=== PATIENT | female | born 1995 | race Caucasian/White ===

== ENCOUNTER 2018-01-28 18:50 | Emergency (ER) | payer OTHER ==
--- NOTE | 2018-01-28 19:02 | ER Report ---
History and Physical Time Seen By MD: 19:02 HPI/ROS CHIEF COMPLAINT: Unintentional overdose HISTORY OF PRESENT ILLNESS: This is a 22-year-old female who presents to the emergency department for an unintentional overdose. Patient states that about one hour prior to arrival she was having some back pain and decided to take 4 of her Tylenol 3's that she was prescribed for chronic back pain secondary to scoliosis. Patient states that she did take the Tylenol with some wine. Patient also states that about 4:00 today she did have a large glass of wine. Patient denies suicidal ideations. Patient states she has chronic back pain and she was just trying to relieve the pain. Patient denies aches, chills, nausea, vomiting , diarrhea. Patient does have 3 roommates who encouraged her to come in for further evaluation. REVIEW OF SYSTEMS: Constitutional: No fever, no chills. Eyes: No discharge. ENT: No sore throat. Cardiovascular: No chest pain, no palpitations. Respiratory: No cough, no shortness of breath. Gastrointestinal: No abdominal pain, no vomiting. Genitourinary: No hematuria. Musculoskeletal: As above. Skin: No rashes. Neurological: No headache. Psych: As above. Allergies: Coded Allergies: No Known Drug Allergies (Unverified , 01/28/18) Home Meds Active Scripts Lidocaine (Lidocaine) 5 % Adh..patch, 1 PATCH.72H TOP Q72H Y for prn, #1 BOX 0 Refills Prov:DARRION PARRA [employer]IVER-BC 01/28/18 Reported Medications l-Norgest/E.estradiol-E.estrad (Fayosim Tablet) 0.15MG(84) Tbdspk.3mo, 1 TAB PO QDAY 01/28/18 Fluoxetine Hcl (PROZAC) 20 Mg Capsule, 20 MG PO QDAY, CAPSULE 01/28/18 Buspirone Hcl (BUSPIRONE HCL) 30 Mg Tablet, 50 MG PO QDAY, #10 TAB 01/28/18 Past Medical/Surgical History She has a past medical and surgical history of anxiety, scoliosis and chronic back pain. Reviewed Nurses Notes: Yes Constitutional Vital Sign - Last 24 Hours 01/28/18 01/28/18 19:03 20:56 Temp 99.9 Pulse 108 85 Resp 24 16 B/P (MAP) 157/93 135/86 (102) Pulse Ox 94 92 O2 Delivery Room Air Room Air Physical Exam General Appearance: The patient is alert, has no immediate need for airway protection and no signs of toxicity, tearful but making good eye contact. Eyes: Pupils equal and round no pallor or injection. ENT, Mouth: Mucous membranes are moist. Respiratory: There are no retractions, lungs are clear to auscultation. Cardiovascular: Regular rate and rhythm. Gastrointestinal: Abdomen is soft and non tender, no masses, bowel sounds normal. Neurological: Alert and oriented 4. Moving ox trophies. No focal neuro deficits. Following all commands. Skin: Warm and dry, no rashes. Musculoskeletal: Neck is supple non tender. Extremities are nontender, nonswollen and have full range of motion. DIFFERENTIAL DIAGNOSIS: After history and physical exam differential diagnosis was considered for unintentional overdose, liver damage and kidney injury. Medical Decision Making Data Points Result Diagram: 01/28/18192401/28/181924 Laboratory Hematology Test 01/28/18 18:54 01/28/18 19:25 Urine Opiates Screen Positive Urine Barbiturates Screen Negative Ur Tricyclic Antidepressants Screen Negative Urine Phencyclidine Screen Negative Urine Amphetamines Screen Negative Urine Benzodiazepines Screen Negative Urine Cocaine Screen Negative Urine Cannabinoids Screen Negative Red Blood Count 5.04 M/uL (4.17-5.56) Mean Corpuscular Volume 88.1 fL (80.0-96.0) Mean Corpuscular Hemoglobin 31.2 pg (26.0-33.0) Mean Corpuscular Hemoglobin Concent 35.4 g/dL (32.0-36.0) Red Cell Distribution Width 13.1 % (11.5-14.5) Mean Platelet Volume 7.7 fL (7.2-11.1) Neutrophils (%) (Auto) 46.1 % (39.4-72.5) Lymphocytes (%) (Auto) 42.4 % (17.6-49.6) Monocytes (%) (Auto) 9.2 % (4.1-12.4) Eosinophils (%) (Auto) 1.9 % (0.4-6.7) Basophils (%) (Auto) 0.4 % (0.3-1.4) Nucleated RBC Relative Count (auto) 0.0 /100WBC Neutrophils # (Auto) 2.9 K/uL (2.0-7.4) Lymphocytes # (Auto) 2.7 K/uL (1.3-3.6) Monocytes # (Auto) 0.6 K/uL (0.3-1.0) Eosinophils # (Auto) 0.1 K/uL (0.0-0.5) Basophils # (Auto) 0.0 K/uL (0.0-0.1) Nucleated RBC Absolute Count (auto) 0.00 K/uL Sodium Level 140 mmol/L (137-145) Potassium Level 3.1 mmol/L (3.5-5.0) Chloride Level 104 mmol/L (98-107) Carbon Dioxide Level 19 mmol/L (22-31) Blood Urea Nitrogen 10 mg/dl (7-18) Creatinine 0.70 mg/dl (0.52-1.04) Glomerular Filtration Rate Calc > 60.0 Random Glucose 98 mg/dl (75-110) Calcium Level 9.4 mg/dl (8.4-10.2) Total Bilirubin 0.3 mg/dl (0.2-1.3) Aspartate Amino Transf (AST/SGOT) 37 U/L (0-35) Alanine Aminotransferase (ALT/SGPT) 64 U/L (0-56) Alkaline Phosphatase 137 U/L (0-126) Total Protein 7.9 gm/dl (6.3-8.2) Albumin 4.1 g/dl (3.5-5.0) Acetaminophen Level < 10 ug/ml Chemistry Test 01/28/18 18:54 01/28/18 19:25 Urine Opiates Screen Positive Urine Barbiturates Screen Negative Ur Tricyclic Antidepressants Screen Negative Urine Phencyclidine Screen Negative Urine Amphetamines Screen Negative Urine Benzodiazepines Screen Negative Urine Cocaine Screen Negative Urine Cannabinoids Screen Negative White Blood Count 6.3 k/uL (4.5-11.0) Red Blood Count 5.04 M/uL (4.17-5.56) Hemoglobin 15.7 g/dL (12.0-16.0) Hematocrit 44.4 % (34.0-47.0) Mean Corpuscular Volume 88.1 fL (80.0-96.0) Mean Corpuscular Hemoglobin 31.2 pg (26.0-33.0) Mean Corpuscular Hemoglobin Concent 35.4 g/dL (32.0-36.0) Red Cell Distribution Width 13.1 % (11.5-14.5) Platelet Count 245 K/uL (150-450) Mean Platelet Volume 7.7 fL (7.2-11.1) Neutrophils (%) (Auto) 46.1 % (39.4-72.5) Lymphocytes (%) (Auto) 42.4 % (17.6-49.6) Monocytes (%) (Auto) 9.2 % (4.1-12.4) Eosinophils (%) (Auto) 1.9 % (0.4-6.7) Basophils (%) (Auto) 0.4 % (0.3-1.4) Nucleated RBC Relative Count (auto) 0.0 /100WBC Neutrophils # (Auto) 2.9 K/uL (2.0-7.4) Lymphocytes # (Auto) 2.7 K/uL (1.3-3.6) Monocytes # (Auto) 0.6 K/uL (0.3-1.0) Eosinophils # (Auto) 0.1 K/uL (0.0-0.5) Basophils # (Auto) 0.0 K/uL (0.0-0.1) Nucleated RBC Absolute Count (auto) 0.00 K/uL Glomerular Filtration Rate Calc > 60.0 Calcium Level 9.4 mg/dl (8.4-10.2) Total Bilirubin 0.3 mg/dl (0.2-1.3) Aspartate Amino Transf (AST/SGOT) 37 U/L (0-35) Alanine Aminotransferase (ALT/SGPT) 64 U/L (0-56) Alkaline Phosphatase 137 U/L (0-126) Total Protein 7.9 gm/dl (6.3-8.2) Albumin 4.1 g/dl (3.5-5.0) Acetaminophen Level < 10 ug/ml Toxicology Test 01/28/18 18:54 01/28/18 19:25 Urine Opiates Screen Positive Urine Barbiturates Screen Negative Ur Tricyclic Antidepressants Screen Negative Urine Phencyclidine Screen Negative Urine Amphetamines Screen Negative Urine Benzodiazepines Screen Negative Urine Cocaine Screen Negative Urine Cannabinoids Screen Negative Acetaminophen Level < 10 ug/ml EKG/Imaging EKG Interpretation 12 lead EKG: Tylenol EKG 1923. Rhythm: Sinus tachycardia, ventricular rate 101. [place]: normal QRS: normal ST segments: No ST segment elevation or depression identified. ED Course/Re-evaluation Clinical Indication for ER IV: Hydration, IV Access ED Course The patient was admitted to a room. A history physical were obtained. Differential diagnoses were considered. An IV was started. A CBC, CMP, acetaminophen level and urine drug screen were obtained. CBC and CMP unremarkable. Negative acetaminophen levels. Negative urine drug screen. I did review these results with the patient. I did instruct her not to take more than the prescribed amount of pain medications and not to mix any medications with alcohol. I did offer the patient a lidocaine patch for her back discomfort. I also sent her home with a prescription for lidocaine patches. I also sent her home with a prescription for physical therapy. Patient states she has tried physical therapy for her back discomfort before however she is willing to explore physical therapy again. Patient had no questions or concerns at this time and was discharged home. Patient was in agreement with his clinic care. Decision to Disposition Date: Jan 28, 2018 Decision to Disposition Time: 20:46 Depart Departure Latest Vital Signs Vital Signs Date Time Temp Pulse Resp B/P (MAP) Pulse Ox O2 Delivery O2 Flow Rate FiO2 01/28/18 20:56 85 16 135/86 (102) 92 Room Air 01/28/18 19:03 99.9 Impression: Primary Impression: Unintentional Tylenol overdose Condition: Improved Disposition: HOME OR SELF-CARE Referrals: [facility] New Scripts Lidocaine (Lidocaine) 5 % Adh..patch 1 PATCH.72H TOP Q72H Y for prn, #1 BOX 0 Refills Prov: DARRION PARRA 01/28/18 Patient Instructions: Acetaminophen Overdose (ED), Back Pain (ED) Additional Instructions: Drink plenty of fluids. Get plenty of rest. Take medications as prescribed, do not mix alcohol with the medications. Try physical therapy as needed. Try lidocaine patch as needed. Return to the ED for any other concerns or worsening symptoms. Problem Qualifiers Primary Impression: Unintentional Tylenol overdose Encounter type: initial encounter Qualified Codes: T39.1X1A - Poisoning by 4 -aminophenol derivatives, accidental (unintentional), initial encounter DARRION PARRA-BC Jan 28, 2018 19:02
[2018-01-28] MEDS ORDERED: BUSP30TA18 PO (19:03)
[2018-01-28] MEDS ORDERED: FLUO-202 PO (19:03)
[2018-01-28] MEDS ORDERED: [UNRECOGNIZED DRUG - REMARK] PO (19:03)
[2018-01-28] MEDS ORDERED: NS(*) 0.9% 1000 ML BAG 1,000 ML IV ONE (19:10)
--- NOTE | 2018-01-28 19:35 | EKG ---
FAC[facility] PATIENT NAME: ALISSA SEGOVIA : [id number] MR: [id number] V: [id number] EXAM DATE: ORDERING PHYSICIAN: DARRION PARRA TECHNOLOGIST: Barrett Cody Reason : Blood Pressure : / mmHG Vent. Rate : 101 BPM Atrial Rate : 101 BPM P-R Int : 128 ms QRS Dur : 082 ms QT Int : 352 ms P-R-T Axes : 037 049 047 degrees QTc Int : 456 ms Sinus tachycardia Otherwise normal ECG No previous ECGs available Confirmed by VICKY ARELLANO ([id number]) on 01/29/2018 2:08:42 PM Referred By: Confirmed By:VICKY ARELLANO
[2018-01-28 19:38] LABS: PLATELET COUNT, AUTOMATED 245 K/uL (150-450)
[2018-01-28] MEDS ORDERED: LIDO700A19 TOP (20:50)
[2018-01-28] MEDS ORDERED: LIDOCAINE 5% PATCH TP SCH (20:50)
[2018-01-28 20:56] VITALS: BP 135/86
[2018-01-28] MEDS ORDERED: PATCH REMOVAL 1 EA TOP SCH (21:00)
== END 2018-01-28 21:08 | disposition home or self-care (01) ==
LOC: ER 19:02
DX: T39.1X1A Poisoning by 4-Aminophenol derivatives, accidental (unintentional), initial encounter (principal); R00.0 Tachycardia, unspecified
CPT/HCPCS: 80305; 80329; 85025; 93005; 99284; J7030; 82040; 82247; 82310; 82374; 82435; 82565; 82947; 84075; 84132; 84155; 84295; 84450; 84460; 84520

== ENCOUNTER 2019-02-12 12:57 | Emergency (ER) | payer OTHER ==
[~2019-02-12 12:57] MED LIST: BUSP30TA18 PO; FLUO-202 PO; LIDO700A19 TOP; [UNRECOGNIZED DRUG - REMARK] PO
--- NOTE | 2019-02-12 13:03 | ER Report ---
History and Physical Time Seen By MD: 13:03 HPI/ROS CHIEF COMPLAINT: Suicidal ideation and depression HISTORY OF PRESENT ILLNESS: This is a 23-year-old female presents to the emergency department for suicidal ideation and depression. Patient states that she has a long history of depression, anxiety and has had suicide attempt in the past. She states that over the last couple weeks she's had increased stressors, schools been intense, she also states that she is struggling with alcohol addiction. She drinks roughly a bottle of wine in the evenings. She states that Tuesday she drank a substantial amount of alcohol and then ate some adipose over the weekend, had some suicidal thoughts over the weekend and is currently having suicidal thoughts though she is not stating she has a specific plan. She did confide in her parents who live in [facility], her dad recommended that she come to the ER for evaluation and possible admission. Patient is here on a voluntary basis, she is very tearful. She also states that she has a history of cutting and burning herself, she burned her right upper thigh about one month ago nothing over the last several days. No other fevers or chills. No nausea or vomiting. No chest pain or shortness of breath. REVIEW OF SYSTEMS: Constitutional: No fever, no chills. Eyes: No discharge. ENT: No sore throat. Cardiovascular: No chest pain, no palpitations. Respiratory: No cough, no shortness of breath. Gastrointestinal: No abdominal pain, no vomiting. Genitourinary: No hematuria. Musculoskeletal: No back pain. Skin: As above. Neurological: No headache. Psychological: As above. Allergies: Coded Allergies: latex (Verified Allergy, Intermediate, rash, 01/29/18) Home Meds Reported Medications Trazodone Hcl (TRAZODONE HCL) 50 Mg Tablet, 50 MG PO QHS 02/12/19 l-Norgest/E.estradiol-E.estrad (Fayosim Tablet) 0.15MG(84) Tbdspk.3mo, 1 TAB PO QDAY 01/28/18 Fluoxetine Hcl (PROZAC) 20 Mg Capsule, 20 MG PO QDAY, CAPSULE 01/28/18 Buspirone Hcl (BUSPIRONE HCL) 30 Mg Tablet, 50 MG PO QDAY, #10 TAB 01/28/18 Discontinued Scripts Lidocaine (Lidocaine) 5 % Adh..patch, 1 PATCH.72H TOP Q72H PRN for prn, #1 BOX 0 Refills Prov:DARRION PARRA INTEGRATED SPECIALIST-BC 01/28/18 Past Medical/Surgical History The patient has a past medical surgical history of premenstrual dysphoric disorder, severe scoliosis, wears glasses, substance abuse, depression, anxiety, OCD, PTSD, suicide attempts. Reviewed Nurses Notes: Yes Hx Alcohol Use: Yes (occassional) Constitutional Vital Sign - Last 24 Hours 02/12/19 02/12/19 13:10 15:17 Temp 98.9 Pulse 86 99 Resp 16 16 B/P (MAP) 123/89 111/89 (96) Pulse Ox 94 94 O2 Delivery Room Air Room Air Physical Exam General Appearance: The patient is alert, has no immediate need for airway protection and no signs of toxicity, tearful. Eyes: Pupils equal and round no pallor or injection. ENT, Mouth: Mucous membranes are moist. Respiratory: There are no retractions, lungs are clear to auscultation. Cardiovascular: Regular rate and rhythm. Gastrointestinal: Abdomen is soft and non tender, no masses, bowel sounds normal. Neurological: Alert and oriented 4. Moving all cavities. Following all commands. No focal neurodeficits. Skin: Old laceration scars and recent burn jackson to the right upper thigh. Musculoskeletal: Neck is supple non tender. Extremities are nontender, nonswollen and have full range of motion. Psychological: Tearful, rapid to slow speech, making intermittent but good eye contact. Pulling at the clinic she is holding her hands. DIFFERENTIAL DIAGNOSIS: After history and physical exam differential diagnosis was considered for depression, bipolar, anxiety, suicidal ideation. Medical Decision Making Data Points Result Diagram: 02/12/19 1341 02/12/19 1341 Laboratory Hematology Test 02/12/19 13:05 02/12/19 13:41 Urine Color Yellow Urine Clarity Slightly-cloudy Urine pH 6.0 pH (4.8-9.5) Urine Specific [place] 1.019 Urine Protein Negative mg/dL (NEGATIVE) Urine Glucose (UA) Negative mg/dL (NEGATIVE) Urine Ketones Trace mg/dL (NEGATIVE) Urine Blood Negative (NEGATIVE) Urine Nitrite Negative (NEGATIVE) Urine Bilirubin Negative (NEGATIVE) Urine Urobilinogen 2.0 mg/dL (0.2-1.9) Urine Leukocyte Esterase Moderate (NEGATIVE) Urine RBC 3 /HPF (0-2/HPF) Urine WBC 14 /HPF (0-5/HPF) Urine Squamous Epithelial Cells Many /LPF (</=FEW) Urine Bacteria Many /HPF (NONE-FEW) Urine Mucus Few /HPF (NONE-FEW) Urine HCG, Qualitative Negative (NEGATIVE) Urine Opiates Screen Negative Urine Barbiturates Screen Negative Ur Tricyclic Antidepressants Screen Negative Urine Phencyclidine Screen Negative Urine Amphetamines Screen Negative Urine Benzodiazepines Screen Negative Urine Cocaine Screen Negative Urine Cannabinoids Screen Positive Red Blood Count 4.97 M/uL (4.17-5.56) Mean Corpuscular Volume 91.1 fL (80.0-96.0) Mean Corpuscular Hemoglobin 30.4 pg (26.0-33.0) Mean Corpuscular Hemoglobin Concent 33.4 g/dL (32.0-36.0) Red Cell Distribution Width 12.8 % (11.5-14.5) Mean Platelet Volume 8.0 fL (7.2-11.1) Neutrophils (%) (Auto) 63.4 % (39.4-72.5) Lymphocytes (%) (Auto) 27.7 % (17.6-49.6) Monocytes (%) (Auto) 6.5 % (4.1-12.4) Eosinophils (%) (Auto) 1.6 % (0.4-6.7) Basophils (%) (Auto) 0.8 % (0.3-1.4) Nucleated RBC Relative Count (auto) 0.0 /100WBC Neutrophils # (Auto) 4.0 K/uL (2.0-7.4) Lymphocytes # (Auto) 1.7 K/uL (1.3-3.6) Monocytes # (Auto) 0.4 K/uL (0.3-1.0) Eosinophils # (Auto) 0.1 K/uL (0.0-0.5) Basophils # (Auto) 0.1 K/uL (0.0-0.1) Nucleated RBC Absolute Count (auto) 0.00 K/uL Peripheral Blood Smear No Y/N Sodium Level 137 mmol/L (137-145) Potassium Level 3.7 mmol/L (3.5-5.0) Chloride Level 104 mmol/L (98-107) Carbon Dioxide Level 25 mmol/L (22-31) Blood Urea Nitrogen 7 mg/dl (7-18) Creatinine 0.80 mg/dl (0.52-1.04) Glomerular Filtration Rate Calc > 60.0 Random Glucose 83 mg/dl (75-110) Calcium Level 9.4 mg/dl (8.4-10.2) Magnesium Level 2.0 mg/dl (1.7-2.2) Total Bilirubin 0.2 mg/dl (0.2-1.3) Aspartate Amino Transf (AST/SGOT) 33 U/L (0-35) Alanine Aminotransferase (ALT/SGPT) 38 U/L (0-56) Alkaline Phosphatase 145 U/L (0-126) Total Protein 8.0 g/dl (6.3-8.2) Albumin 4.8 g/dl (3.5-5.0) Thyroid Stimulating Hormone (TSH) 2.21 uIU/ml (0.46-4.68) Salicylates Level < 10 mg/L Salicylate Last Dose Date unk Acetaminophen Level < 10 ug/ml Serum Alcohol < 10 mg/dl Chemistry Test 02/12/19 13:05 02/12/19 13:41 Urine Color Yellow Urine Clarity Slightly-cloudy Urine pH 6.0 pH (4.8-9.5) Urine Specific [place] 1.019 Urine Protein Negative mg/dL (NEGATIVE) Urine Glucose (UA) Negative mg/dL (NEGATIVE) Urine Ketones Trace mg/dL (NEGATIVE) Urine Blood Negative (NEGATIVE) Urine Nitrite Negative (NEGATIVE) Urine Bilirubin Negative (NEGATIVE) Urine Urobilinogen 2.0 mg/dL (0.2-1.9) Urine Leukocyte Esterase Moderate (NEGATIVE) Urine RBC 3 /HPF (0-2/HPF) Urine WBC 14 /HPF (0-5/HPF) Urine Squamous Epithelial Cells Many /LPF (</=FEW) Urine Bacteria Many /HPF (NONE-FEW) Urine Mucus Few /HPF (NONE-FEW) Urine HCG, Qualitative Negative (NEGATIVE) Urine Opiates Screen Negative Urine Barbiturates Screen Negative Ur Tricyclic Antidepressants Screen Negative Urine Phencyclidine Screen Negative Urine Amphetamines Screen Negative Urine Benzodiazepines Screen Negative Urine Cocaine Screen Negative Urine Cannabinoids Screen Positive White Blood Count 6.3 k/uL (4.5-11.0) Red Blood Count 4.97 M/uL (4.17-5.56) Hemoglobin 15.1 g/dL (12.0-16.0) Hematocrit 45.3 % (34.0-47.0) Mean Corpuscular Volume 91.1 fL (80.0-96.0) Mean Corpuscular Hemoglobin 30.4 pg (26.0-33.0) Mean Corpuscular Hemoglobin Concent 33.4 g/dL (32.0-36.0) Red Cell Distribution Width 12.8 % (11.5-14.5) Platelet Count 281 K/uL (150-450) Mean Platelet Volume 8.0 fL (7.2-11.1) Neutrophils (%) (Auto) 63.4 % (39.4-72.5) Lymphocytes (%) (Auto) 27.7 % (17.6-49.6) Monocytes (%) (Auto) 6.5 % (4.1-12.4) Eosinophils (%) (Auto) 1.6 % (0.4-6.7) Basophils (%) (Auto) 0.8 % (0.3-1.4) Nucleated RBC Relative Count (auto) 0.0 /100WBC Neutrophils # (Auto) 4.0 K/uL (2.0-7.4) Lymphocytes # (Auto) 1.7 K/uL (1.3-3.6) Monocytes # (Auto) 0.4 K/uL (0.3-1.0) Eosinophils # (Auto) 0.1 K/uL (0.0-0.5) Basophils # (Auto) 0.1 K/uL (0.0-0.1) Nucleated RBC Absolute Count (auto) 0.00 K/uL Peripheral Blood Smear No Y/N Glomerular Filtration Rate Calc > 60.0 Calcium Level 9.4 mg/dl (8.4-10.2) Magnesium Level 2.0 mg/dl (1.7-2.2) Total Bilirubin 0.2 mg/dl (0.2-1.3) Aspartate Amino Transf (AST/SGOT) 33 U/L (0-35) Alanine Aminotransferase (ALT/SGPT) 38 U/L (0-56) Alkaline Phosphatase 145 U/L (0-126) Total Protein 8.0 g/dl (6.3-8.2) Albumin 4.8 g/dl (3.5-5.0) Thyroid Stimulating Hormone (TSH) 2.21 uIU/ml (0.46-4.68) Salicylates Level < 10 mg/L Salicylate Last Dose Date unk Acetaminophen Level < 10 ug/ml Serum Alcohol < 10 mg/dl Toxicology Test 02/12/19 13:05 02/12/19 13:41 Urine Opiates Screen Negative Urine Barbiturates Screen Negative Ur Tricyclic Antidepressants Screen Negative Urine Phencyclidine Screen Negative Urine Amphetamines Screen Negative Urine Benzodiazepines Screen Negative Urine Cocaine Screen Negative Urine Cannabinoids Screen Positive Salicylates Level < 10 mg/L Salicylate Last Dose Date unk Acetaminophen Level < 10 ug/ml Serum Alcohol < 10 mg/dl Urinalysis Test 02/12/19 13:05 Urine Color Yellow Urine Clarity Slightly-cloudy Urine pH 6.0 pH (4.8-9.5) Urine Specific [place] 1.019 Urine Protein Negative mg/dL (NEGATIVE) Urine Glucose (UA) Negative mg/dL (NEGATIVE) Urine Ketones Trace mg/dL (NEGATIVE) Urine Blood Negative (NEGATIVE) Urine Nitrite Negative (NEGATIVE) Urine Bilirubin Negative (NEGATIVE) Urine Urobilinogen 2.0 mg/dL (0.2-1.9) Urine Leukocyte Esterase Moderate (NEGATIVE) Urine RBC 3 /HPF (0-2/HPF) Urine WBC 14 /HPF (0-5/HPF) Urine Squamous Epithelial Cells Many /LPF (</=FEW) Urine Bacteria Many /HPF (NONE-FEW) Urine Mucus Few /HPF (NONE-FEW) Urine HCG, Qualitative Negative (NEGATIVE) ED Course/Re-evaluation ED Course The patient was admitted to room. A history of physical obtained. Differential diagnoses were considered. A CBC, CMP, psych panel were obtained. A UA and tox s creen were collected. Lab studies unremarkable, positive for cannabis otherwise unremarkable. Negative UA. I reviewed the laboratory studies with the patient, she was evaluated by the psych techs, she did sign into the behavioral health unit on a voluntary basis, I did speak with Dr. Ramesh as noted below, the patient has been accepted into the behavioral health unit. Patient remained cooperative while in the ER. 02/12/2019 2:26:[address] Ramesh, she is accepted the patient into the behavioral health unit for suicidal ideation. Patient signed in voluntarily. Decision to Disposition Date: Feb 12, 2019 Decision to Disposition Time: 14:26 Depart Departure Latest Vital Signs Vital Signs Date Time Temp Pulse Resp B/P (MAP) Pulse Ox O2 Delivery O2 Flow Rate FiO2 02/12/19 15:17 99 16 111/89 (96) 94 Room Air 02/12/19 13:10 98.9 Impression: Primary Impression: Suicidal ideation Condition: Improved Disposition: XFER [facility] DARRION PARRAP-MARTHA Feb 12, 2019 13:03
[2019-02-12] MEDS ORDERED: TRAZ50TA34 PO (13:19)
[2019-02-12 13:50] LABS: PLATELET COUNT, AUTOMATED 281 K/uL (150-450)
[2019-02-12 15:17] VITALS: BP 111/89
[2019-02-12] MEDS ORDERED: TRAZ100T31 PO (19:17)
== END 2019-02-12 15:35 ==
LOC: ER 13:26
DX: R45.851 Suicidal ideations (principal); F41.9 Anxiety disorder, unspecified; F32.9 Major depressive disorder, single episode, unspecified; M41.9 Scoliosis, unspecified; F42.9 Obsessive-compulsive disorder, unspecified
CPT/HCPCS: 36415; 80305; 80320; 80329; 81001; 81025; 82040; 82247; 82310; 82374; 82435; 82565; 82947; 83735; 84075; 84132; 84155; 84295; 84443; 84450; 84460; 84520; 85025; 99284

== ENCOUNTER 2019-02-12 14:31 | Inpatient (IN) | payer OTHER ==
[~2019-02-12] VITALS: Ht 167.6 cm; Wt 78.5 kg
[~2019-02-12 14:31] MED LIST changes: +TRAZ50TA34 PO
[2019-02-12] MEDS ORDERED: traZODone HCL 50 MG TAB PO PRN (15:40)
[2019-02-12] MEDS ORDERED: ACETAMINOPHEN 325 MG TAB PO PRN (15:45)
[2019-02-12] MEDS ORDERED: MAG HYD/AL HYD/SIMETH 30ML UDC PO PRN (15:45)
[2019-02-12 15:54] VITALS: BP 120/91
[2019-02-12] MEDS ORDERED: LORazepam 1 MG TAB PO PRN (17:20)
[2019-02-12] MEDS ORDERED: TRAZ100T31 PO (19:17)
[2019-02-13 06:04] VITALS: BP 101/71
[2019-02-13] MEDS: MULTIVITAMINS PO SCH (08:14)
[2019-02-13] MEDS: FLUoxetine HCL 20 MG CAP PO SCH (12:46)
[2019-02-13 13:15] VITALS: BP 110/68
[2019-02-13] MEDS: traZODone HCL 50 MG TAB PO SCH (20:47)
[2019-02-13 21:35] VITALS: BP 118/72
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
[2019-02-14 05:51] VITALS: BP 116/75
[2019-02-14] MEDS: FLUoxetine HCL 20 MG CAP PO SCH (08:31)
[2019-02-14] MEDS: MULTIVITAMINS PO SCH (08:31)
[2019-02-14 13:30] VITALS: BP 114/79
--- NOTE | 2019-02-14 16:23 | BHS Progress Note ---
S - Subjective Progress Notes Subjective I met with Melissa for the first time today in team and her parents also joined us. She feels improved with no thoughts of self-harm, no cravings for substances (other than caffeine) and says that her depression is only a "1" out of 10 today. She has been learining about her diagnosis of borderline personality disorder and feels that it fits her "100%" Her parents also agree that this is what they see and are grateful that she has come here to begin to address her problems. We talked about what borderline personality disorder is and the importance of leaning emotional regulation skills to address the symptoms. We also talked about her plan for contraception going forward. Melissa would like an IUD and we agreed that this seems like an excellent option. Suicidal Ideation: None Homicidal Ideation: None S - Objective Physical Exam Vital Signs Vital Signs 02/14/19 13:30 Temp 98.7 Pulse 83 Resp 16 B/P (MAP) 114/79 (91) Pulse Ox 95 O2 Delivery Room Air Muscle Strength and Tone: WNL Gait and Station: Steady Allergies Reviewed: Yes Mental Status Exam General Appearance: Casual, Good Eye Contact, Cooperative, Polite, Good Interaction Speech: Clear, Spontaneous, Normal Rate, Normal Rhythm, Normal Volume, Normal Tone Mood: Euthymic Affect: Full and Appropriate Thought Process: Organized, Logical, Goal Directed Thought Content: No Suicidal Ideation Sensorium: Clear Intelligence: Above Average Insight Judgment: Good Lab Reviewed labs. Noted bHCG is negative. UA appears contaminated. [facility] Assessment and Plan [id number] Encounter Date: Feb 14, 2019 [id number] Encounter Time: 09:30 Problems: (1) Borderline personality disorder in adult Status: Chronic Assessment & Plan: Improving in this setting. Continuing Prozac 20 mgs and and trazodone 50 mgs as ordered Condition Melissa is making excellent progress and working through the DBT skills education program here. She would like to be released tomorrow to continue with outpatient therapy. Will will proceed with discharge planning. KEVIN VEGA DO Feb 14, 2019 16:23
[2019-02-14 19:19] VITALS: BP 118/78
[2019-02-14] MEDS: traZODone HCL 50 MG TAB PO SCH (20:39)
[2019-02-14 20:59] VITALS: BP 124/73
[2019-02-15 06:05] VITALS: BP 99/63
[2019-02-15] MEDS: FLUoxetine HCL 20 MG CAP PO SCH (08:20)
[2019-02-15] MEDS: MULTIVITAMINS PO SCH (08:20)
[2019-02-15] MEDS ORDERED: TRAZ50TA34 PO (11:40)
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
== END 2019-02-15 16:12 | disposition home or self-care (01) | DRG 883 ==
LOC: BHS 14:31
PROVIDERS: ADMIT Psychiatry & Neurology Psychiatry; ATTEND Psychiatry & Neurology Psychiatry
DX: F60.3 Borderline personality disorder (principal); R45.851 Suicidal ideations; F34.1 Dysthymic disorder; F10.10 Alcohol abuse, uncomplicated; Z73.3 Stress, not elsewhere classified; Z55.8 Other problems related to education and literacy; Z63.0 Problems in relationship with spouse or partner; Z91.5 Personal history of self-harm; Z81.1 Family history of alcohol abuse and dependence; Z81.8 Family history of other mental and behavioral disorders; Z62.811 Personal history of psychological abuse in childhood; Z62.810 Personal history of physical and sexual abuse in childhood; Y90.0 Blood alcohol level of less than 20 mg/100 ml